=== PATIENT | female | born 1950 | race Caucasian/White ===

== ENCOUNTER → 2020-05-29 | Outpatient (CLI) | payer OTHER, MEDICARE ==
[~2020-05-29] MED LIST: ASA5UEC PO; CALCIUM 600 +1 EAC1; CALCIUM PO; CENTRUM SILVER1 EAC3 PO; FISH OIL 1,2001 EAC3; FISHOIL PO; FOSAMAX 70 MG T70 MG PO; LORTAB 5 MG/5001 TA1 PO; NORCO 5-325 TA1 EACH PO; PROTONIX40 M2 PO; Tylenol PM PO; VITAMIN D-32000 UNIT; VITAMIN D-32000 UNIT PO
== END ==
LOC: NUC 08:43
PROVIDERS: ATTEND Orthopaedic Surgery Foot and Ankle Surgery
DX: M81.0 Age-related osteoporosis without current pathological fracture (principal); S92.351D Displaced fracture of fifth metatarsal bone, right foot, subsequent encounter for fracture with routine healing; X58.XXXD Exposure to other specified factors, subsequent encounter